=== PATIENT | male | born 1970 | race Caucasian/White ===

== ENCOUNTER 2021-09-18 11:44 | Day surgery (SDC) | payer OTHER ==
[2021-09-18 12:40] VITALS: BMI 48.8
[2021-09-18 13:05] LABS: Hemoglobin 14.4 g/dL (13.5-17.5); Mean Corpuscular HGB CONC 33.8 g/dL (32.0-36.0); Mean Corpuscular Hemoglobin 29.1 pg (27.0-33.0); Mean Corpuscular Volume 86.2 fl (81.2-95.1); Mean Platelet Volume 9.4 fl (7.4-10.4); Platelet Count 231 10x3/uL (150-450); Red Blood Cell (RBC) Count 4.94 10x6/uL (4.32-5.72); White Blood Cell (WBC) Count 7.1 10x3/uL (3.5-10.5)
[2021-09-18 13:29] LABS: ALT (SGPT) 20 U/L (8-55); AST (SGOT) 13 U/L (5-34); Albumin 3.9 g/dL (3.5-5.0); Alkaline Phosphatase 96 U/L (40-110); Anion Gap 13 mmol/L (10-20); BUN (Urea Nitrogen) 10 mg/dL (8.9-20.6); Bilirubin, Total 0.4 mg/dL (0.2-1.2); Calc. Creatinine Clearance 272 mL/min (70-130); Calcium 9.8 mg/dL (7.8-10.44); Carbon Dioxide 28 mmol/L (22-29); Chloride 101 mmol/L (98-107); Estimated GFR 110; Globulin 3.2 g/dL (2.4-3.5); Glucose 197 mg/dL (70-105); Potassium 4.2 mmol/L (3.5-5.1); Protein, Total 7.1 g/dL (6.0-8.3); Sodium 138 mmol/L (136-145)
[2021-09-18] MEDS ORDERED: Midazolam HCl 2 mg/2 ml Vial ONE (13:48)
[2021-09-18] MEDS ORDERED: Lidocaine 1% PF 5 ML VIAL ONE (13:48)
[2021-09-18] MEDS ORDERED: Fentanyl 100 MCG/2 ML VIAL ONE (13:48)
[2021-09-18] MEDS ORDERED: PROPOFOL 20 ML ONE (13:48)
[2021-09-18] MEDS ORDERED: Ondansetron PF 4 MG/2 ML Vial ONE (13:48)
[2021-09-18] MEDS ORDERED: CEFAZOLIN 1 GM VIAL ONE (13:58)
[2021-09-18] MEDS ORDERED: cefTRIAXone\\ROCEPHIN 2 GM in Sodium Chloride 0.9% 100 ML IVPB SCH (14:00)
[2021-09-18] MEDS ORDERED: Dextrose 50% Abboject 50 ML SYRINGE SLOW IVP PRN (14:04)
[2021-09-18] MEDS ORDERED: HumaLOG 300 UNITS/3 ML VIAL SC PRN (14:04)
[2021-09-18] MEDS ORDERED: Dextrose 5% in Water 1,000 ML IV PRN (14:04)
[2021-09-18] MEDS ORDERED: Acetaminophen 325 MG TAB PO PRN (14:07)
[2021-09-18] MEDS ORDERED: Ondansetron PF 4 MG/2 ML Vial IVP PRN (14:07)
[2021-09-18] MEDS ORDERED: Ondansetron ODT 4 MG TAB PO PRN (14:07)
[2021-09-18] MEDS ORDERED: Senokot S 8.6-50 MG TAB PO PRN (14:07)
[2021-09-18] MEDS ORDERED: Nicotine 14 MG PATCH TD SCH (14:15)
[2021-09-18] MEDS ORDERED: Neomycin-Polymyxin 1 ML AMP ONE (14:24)
[2021-09-18] MEDS ORDERED: Bupivacaine PF 0.5% 30 ML VIAL ONE (14:24)
[2021-09-18] MEDS ORDERED: PHENYLEPHRINE-NS 100 MCG/ML 10 ML SYRINGE ONE (14:33)
== END 2021-09-18 15:48 | disposition home or self-care (01) ==
LOC: CSHSDC 11:44
PROVIDERS: ATTEND Podiatrist
PROC: 0Y6V0Z1 Detachment at Right 4th Toe, High, Open Approach (ICD-10-PCS; principal; 2021-09-18)
DX: M86.9 Osteomyelitis, unspecified (principal); L40.9 Psoriasis, unspecified; I10 Essential (primary) hypertension; E11.9 Type 2 diabetes mellitus without complications; E78.5 Hyperlipidemia, unspecified; G47.33 Obstructive sleep apnea (adult) (pediatric); K21.9 Gastro-esophageal reflux disease without esophagitis; F17.210 Nicotine dependence, cigarettes, uncomplicated; Z20.822 Contact with and (suspected) exposure to COVID-19; E66.01 Morbid (severe) obesity due to excess calories; Z68.42 Body mass index [BMI] 45.0-49.9, adult; Z79.84 Long term (current) use of oral hypoglycemic drugs; Z79.899 Other long term (current) drug therapy
CPT/HCPCS: 36415; 80053; 85027; 87070; 87205; 87811; J0690; J2250; J2405; J2704; J3010; S0020

== ENCOUNTER 2022-01-12 08:17 | Outpatient (CLI) | payer OTHER | END 2022-01-12 08:18 | disposition home or self-care (01) | LOC: CSHWCC 08:17 | PROVIDERS: ATTEND Nurse Practitioner Family | DX: E11.621 Type 2 diabetes mellitus with foot ulcer (principal); L97.512 Non-pressure chronic ulcer of other part of right foot with fat layer exposed; L97.412 Non-pressure chronic ulcer of right heel and midfoot with fat layer exposed; R60.0 Localized edema | CPT/HCPCS: 99204; G0463 ==

== ENCOUNTER 2022-11-29 08:20 | Day surgery (SDC) | payer OTHER ==
[2022-11-24 09:50] VITALS: BMI 47.5
[2022-11-29] MEDS ORDERED: Bupivacaine PF 0.5% 30 ML VIAL ONE (10:31)
[2022-11-29] MEDS ORDERED: fentaNYL 50 mcg/mL 1 mL Vial ONE (10:53)
[2022-11-29] MEDS ORDERED: CEFAZOLIN 2 GM VIAL ONE (10:55)
[2022-11-29] MEDS ORDERED: Sevoflurane 250 ML INH ANEST BOTTLE ONE (10:55)
[2022-11-29] MEDS ORDERED: Ondansetron PF 4 MG/2 ML Vial ONE (11:05)
[2022-11-29] MEDS ORDERED: Dexamethasone 4 mg/ml Vial ONE (11:05)
[2022-11-29] MEDS ORDERED: Lidocaine 1% PF 5 ML VIAL ONE (11:05)
[2022-11-29] MEDS ORDERED: PROPOFOL 20 ML ONE (11:05)
[2022-11-29] MEDS ORDERED: PHENYLEPHRINE-NS 100 MCG/ML 10 ML SYRINGE ONE ×2 (11:09→11:51)
[2022-11-29] MEDS ORDERED: ePHEDrine Sulfate 50 MG/10 ML VIAL ONE (12:00)
== END 2022-11-29 13:55 | disposition home or self-care (01) ==
LOC: CSHSDC 08:20
PROVIDERS: ATTEND Podiatrist Foot & Ankle Surgery
PROC: 0SGM04Z Fusion of Right Metatarsal-Phalangeal Joint with Internal Fixation Device, Open Approach (ICD-10-PCS; principal; 2022-11-29)
DX: S92.311A Displaced fracture of first metatarsal bone, right foot, initial encounter for closed fracture (principal); I10 Essential (primary) hypertension; E11.9 Type 2 diabetes mellitus without complications; F17.210 Nicotine dependence, cigarettes, uncomplicated; G47.33 Obstructive sleep apnea (adult) (pediatric); K21.9 Gastro-esophageal reflux disease without esophagitis; Z79.899 Other long term (current) drug therapy; Z79.84 Long term (current) use of oral hypoglycemic drugs; Z79.85 Long-term (current) use of injectable non-insulin antidiabetic drugs; X58.XXXA Exposure to other specified factors, initial encounter
CPT/HCPCS: C1713; J1100; J2405; J2704; J3010; S0020

== ENCOUNTER 2024-11-12 19:31 | Emergency (ER) | payer OTHER | END 2024-11-12 21:22 | LOC: CSHERS 19:31 | DX: Z53.21 Procedure and treatment not carried out due to patient leaving prior to being seen by health care provider (principal) ==